=== PATIENT | male | born 1945 | race Caucasian/White ===

== ENCOUNTER 2017-12-17 18:56 | Inpatient (IN) | payer OTHER ==
[~2017-12-17] VITALS: Ht 182.9 cm; Wt 118.2 kg
[2017-12-17 20:05] LABS: BASOPHIL (%) 0.2 % (0-1); EOSINOPHIL (%) 0 % (0-5); HEMATOCRIT 38.5 % (38.0-50.0); HEMOGLOBIN 13.5 G/DL (12.5-16.6); IMMATURE GRANULOCYTE (%) 0.5 % (0.0-0.7); LYMPHOCYTE (%) 5.3 % (15-42); LYMPHOCYTE COUNT 0.8 K/uL (1.0-2.8); MCH 30.3 PG (29.0-34.0); MCHC 35.1 G/DL (30.0-36.0); MCV 86.5 FL (86-99); MONOCYTE (%) 6.9 % (3-12); NEUTROPHIL (%) 87.1 % (45-76); NEUTROPHIL COUNT 12.5 K/uL (1.8-6.4); PLATELET COUNT 143 K/uL (156-360); RBC DIS.WIDTH-CV 12.2 % (11.8-14.6); RBC DIS.WIDTH-SD 38.9 % (39-53); RED BLOOD COUNT 4.45 M/uL (4.00-5.50); WHITE BLOOD COUNT 14.4 K/uL (4.1-10.2)
[2017-12-17 20:16] LABS: ALBUMIN 4.1 g/dL (3.2-4.8); CHLORIDE 101 mEq/L (99-109); POTASSIUM 3.9 mEq/L (3.7-5.4); SODIUM 135 mEq/L (136-147)
[2017-12-17 20:18] LABS: GLUCOSE 193 mg/dL (70-99); TOTAL PROTEIN 7.2 g/dL (6.4-8.3)
[2017-12-17 20:20] LABS: TOTAL BILIRUBIN 1.4 mg/dL (0.0-1.0)
[2017-12-17 20:22] LABS: ALKALINE PHOSPHATASE 91 IU/L (3-129); GFR ESTIMATE (CALCULATED) > 59 mL/min/ (58.99-99999)
[2017-12-17 20:23] LABS: UREA NITROGEN (BUN) 26 mg/dL (9-23)
[2017-12-17 20:24] LABS: AST (GOT) 18 IU/L (2-34)
[2017-12-17 20:25] LABS: ALT (GPT) 9 IU/L (3-49)
[2017-12-17 20:26] LABS: TROP-I INTERPRETATION NEGATIVE; TROPONIN-I < 0.01 ng/mL (0.0-0.30)
[2017-12-17 22:10] LABS: APPEARANCE SL.HAZY ((CLEAR)); BILIRUBIN NEGATIVE; BLOOD NEGATIVE; COLOR YELLOW ((YELLOW)); GLUCOSE (STRIP) NEGATIVE; KETONES 20; LEUKOCYTES NEGATIVE; NITRITE NEGATIVE; PROTEIN (STRIP) 30; SPECIFIC GRAVITY 1.023 (1.000-1.030)
[2017-12-17 22:15] LABS: BACTERIA NONE SEEN /HPF; EPITHELIAL CELLS RARE /HPF; MUCUS 2+ /LPF; RED BLOOD CELLS 0-5 /HPF (0-5); UCUL ADDED? NO; WHITE BLOOD CELLS 0-5 /HPF (0-5)
[2017-12-17] MEDS ORDERED: RASAGILINE MESYL1 MG PO (22:54)
[2017-12-17] MEDS ORDERED: PRAMIPEXOLE DIHY1 MG PO (22:54)
[2017-12-17] MEDS ORDERED: METFORMIN HCL500 M1 PO (22:55)
[2017-12-17] MEDS ORDERED: CARBIDOPA/LEVO1 EACH PO (22:56)
[2017-12-17] MEDS ORDERED: LO-DOSE ASPIRIN81 M1 PO (22:58)
[2017-12-17] MEDS ORDERED: VITAMIN D31000 UNIT PO (23:00)
[2017-12-17] MEDS ORDERED: SUPER B COMPL400 MCG PO (23:00)
[2017-12-17] MEDS ORDERED: SAW PALMETTO450 MG PO (23:01)
[2017-12-18 00:58] VITALS: BP 126/69
[2017-12-18 03:58] VITALS: BP 131/68
[2017-12-18 09:04] VITALS: BP 116/61
[2017-12-18 10:34] LABS: HEMOGLOBIN A1c (GLYCOHEMOGLOB) 6.5 % (Below 5.7)
[2017-12-18 10:41] LABS: BASOPHIL (%) 0.2 % (0-1); EOSINOPHIL (%) 0 % (0-5); IMMATURE GRANULOCYTE (%) 0.5 % (0.0-0.7); LYMPHOCYTE (%) 9.7 % (15-42); LYMPHOCYTE COUNT 1.1 K/uL (1.0-2.8); MCH 29.7 PG (29.0-34.0); MCHC 33.5 G/DL (30.0-36.0); MCV 88.5 FL (86-99); MONOCYTE (%) 5.6 % (3-12); MONOCYTE COUNT 0.7 K/uL (0-0.8); NEUTROPHIL COUNT 9.7 K/uL (1.8-6.4); PLATELET COUNT 149 K/uL (156-360); RBC DIS.WIDTH-CV 12.6 % (11.8-14.6); RBC DIS.WIDTH-SD 41.2 % (39-53); RED BLOOD COUNT 3.84 M/uL (4.00-5.50); WHITE BLOOD COUNT 11.5 K/uL (4.1-10.2)
[2017-12-18 10:47] LABS: HEMOGLOBIN 11.4 G/DL (12.5-16.6)
[2017-12-18 11:04] LABS: CHLORIDE 103 MEQ/L (99-109); CREATININE 0.9 MG/DL (0.6-1.3); GFR ESTIMATE (CALCULATED) > 59 mL/min/ (58.99-99999); GLUCOSE 155 mg/dL (70-99); POTASSIUM 3.7 MEQ/L (3.7-5.4); SODIUM 138 MEQ/L (136-147); UREA NITROGEN (BUN) 25 mg/dL (9-23)
[2017-12-18 12:30] VITALS: BP 101/56
[2017-12-18 16:59] VITALS: BP 109/58
[2017-12-18 19:50] VITALS: BP 125/71
[2017-12-19 00:15] VITALS: BP 152/85
[2017-12-19 03:28] VITALS: BP 131/80
[2017-12-19 05:30] LABS: HEMATOCRIT 34.9 % (38.0-50.0); HEMOGLOBIN 11.9 G/DL (12.5-16.6); MCH 29.8 PG (29.0-34.0); MCHC 34.1 G/DL (30.0-36.0); MCV 87.3 FL (86-99); PLATELET COUNT 157 K/uL (156-360); RBC DIS.WIDTH-CV 12.5 % (11.8-14.6); RBC DIS.WIDTH-SD 39.9 % (39-53); WHITE BLOOD COUNT 6.6 K/uL (4.1-10.2)
[2017-12-19 06:01] LABS: CHLORIDE 104 MEQ/L (99-109); CREATININE 0.8 MG/DL (0.6-1.3); GFR ESTIMATE (CALCULATED) > 59 mL/min/ (58.99-99999); GLUCOSE 150 mg/dL (70-99); SODIUM 139 MEQ/L (136-147); UREA NITROGEN (BUN) 23 mg/dL (9-23)
[2017-12-19 07:30] VITALS: BP 146/77
[2017-12-19 12:05] VITALS: BP 179/87
[2017-12-19 16:30] VITALS: BP 162/88
[2017-12-19 19:09] VITALS: BP 137/70
[2017-12-20 04:51] VITALS: BP 158/72
[2017-12-20 07:09] VITALS: BP 138/75
[2017-12-20] MEDS ORDERED: QUETIAPINE FUMA25 MG PO (10:50)
== END 2017-12-20 11:40 | disposition home or self-care (01) | DRG 72 ==
LOC: EME → EDBD 18:56 → EME 18:56 → 4EAST 12-18 → EDOF 12-18 → ENRESERV 12-18 00:11 → 4EAST 12-18 00:54
PROVIDERS: Emergency Medicine; Hospitalist; Internal Medicine
DX: G93.41 Metabolic encephalopathy (principal); J20.8 Acute bronchitis due to other specified organisms; E86.0 Dehydration; E11.9 Type 2 diabetes mellitus without complications; G20 Parkinson's disease; Z87.891 Personal history of nicotine dependence; E66.9 Obesity, unspecified; Z68.35 Body mass index [BMI] 35.0-35.9, adult
CPT/HCPCS: 70450; 71046; 80048; 80053; 81003; 82607; 82948; 83036; 83605; 84443; 84484; 85025; 85027; 87040; 87086; 87502; 93005; 99281; 99285; J0696; J1644; J1815; J1956; J2405; J7030